=== PATIENT | female | born 1960 | race Caucasian/White ===

== ENCOUNTER 2016-10-20 01:04 | Emergency (ER) | payer SELFPAY ==
[~2016-10-20] VITALS: Ht 170.2 cm; Wt 74.8 kg
[~2016-10-20 01:04] MED LIST: TYLENOL EXTRA500 MG ORAL
[2016-10-20] MEDS ORDERED: HYDROmorphone 1mg/ml Carpuject IM ONE (01:15)
[2016-10-20] MEDS ORDERED: HYDROCODON-ACE1 EA15 ORAL (02:38)
--- NOTE | 2016-10-20 02:39 | Emergency Room Report ---
History of Present Illness General Chief Complaint: Pain Source: Patient Present Illness HPI This is a 56-year-old female who had a right hip replacement secondary to degenerative changes from a previous fall. She presents with right hip pain. Pain is worse the last couple days. She has chronic pain in her knee and hip before. Had MRI in May. Worse in the last 2 days. Worse with bearing weight. No trauma. Pain is 9/10. No nausea no vomiting. No radiation. Allergies: Uncoded Allergies: SULFA (Allergy, Unknown, 10/20/16) Patient History Past Medical History: see triage record, old chart reviewed Past Surgical History: other Pertinent Family History: none Social History: Denies: smoking Last Menstrual Period: n/a Now: No Immunizations: other Reviewed Nursing Documentation: PMH: Agreed, PSxH: Agreed Nursing Documentation-PMH Past Medical History: No History, Except For Hx Cardiac Problems: Yes - right total hip replacement 2010 Review of Systems Eye: Denies: blurred vision, eye pain ENT: Denies: ear pain, nose congestion, throat swelling Respiratory: Denies: cough, shortness of breath Cardiovascular: Denies: chest pain, palpitations Gastrointestinal: Denies: abdominal pain, diarrhea, nausea, vomiting Musculoskeletal: Reports: joint pain, Denies: back pain Skin: Denies: rash Neurological: Denies: headache, numbness Endocrine: Denies: increased thirst, increased urine Hematologic/Lymphatic: Denies: easy bruising All Other Systems: negative except mentioned in HPI Physical Exam Vital Signs Date Time Temp Pulse Resp B/P Pulse Ox O2 Delivery O2 Flow Rate FiO2 10/20/16 00:57 105 20 128/81 100 Room Air vitals normal. Sp02 EP Interpretation: reviewed, normal General Appearance: well appearing, no apparent distress, alert Head: normocephalic, atraumatic Eyes: bilateral eye EOMI, bilateral eye PERRL ENT: hearing grossly normal, normal pharynx Neck: full range of motion, supple, no meningismus Respiratory: chest non-tender, lungs clear, normal breath sounds Cardiovascular #1: regular rate, rhythm, no murmur Gastrointestinal: normal bowel sounds, non tender, no mass, no organomegaly, no bruit, non-distended Musculoskeletal: back normal, normal range of motion, tender - right hip tenderness with axial load pain over knee Neurologic: alert, oriented x3 Psychiatric: mood/affect normal Skin: warm/dry Medical Decision Making Diagnostic Impression: Primary Impression: Right hip pain ER Course Patient presents with atraumatic right hip pain. No evidence of degenerative changes. Heart were intact. This may be secondary to her knee. She scheduled see orthopedics beginning of November. Will treat with pain medication. No evidence of septic joint. No dislocation Other X-Ray Diagnostic Results Other X-Ray Diagnostic Results : X-Ray Ordered: xr hip Date: Oct 20, 2016 Time: 02:37 EP Interpretation: Yes Findings: no fractures, no dislocation, no soft tissue swelling, other - Hardware intact. Number of Views: 3 Last Vital Signs Date Time Temp Pulse Resp B/P Pulse Ox O2 Delivery O2 Flow Rate FiO2 10/20/16 00:57 105 20 128/81 100 Room Air Status: improved Disposition: HOME, SELF-CARE Condition: Stable Scripts Hydrocodone/Acetaminophen 5-325* (HYDROCODONE/ACETAMINOPHEN 5-325*) 1 Each Tablet 1 TAB ORAL Q6H Y for For Pain, #20 TAB 0 Refills Prov: JW DASILVA M.D. 10/20/16 Additional Instructions: Follow up with your doctor in 7 days. Return if worse. JW DASILVA M.D. Oct 20, 2016 02:39
[2016-10-20 02:46] VITALS: BP 101/76
[2016-10-20 02:47] VITALS: BP 101/76
--- NOTE | 2016-10-20 12:19 | Diagnostic Imaging Report ---
Indications: hip pain Findings: Two views of the right hip were obtained. Right hip prosthesis is noted. There is no fracture identified on the 2 views obtained. No dislocation identified. Impression: No fracture or dislocation identified
== END 2016-10-20 02:47 | disposition home or self-care (01) ==
LOC: EDBD 01:04 → EMR 01:17
DX: M25.551 Pain in right hip (principal); Z96.641 Presence of right artificial hip joint; Z88.2 Allergy status to sulfonamides
CPT/HCPCS: 73502; 96372; 99283; J1170

== ENCOUNTER 2017-03-02 23:46 | Emergency (ER) | payer BC ==
[~2017-03-02] VITALS: Ht 170.2 cm; Wt 82.6 kg
[~2017-03-02 23:46] MED LIST changes: +HYDROCODON-ACE1 EA15 ORAL
[2017-03-03] MEDS ORDERED: HYDROmorphone 1mg/ml Carpuject IVP ONE ×2 (00:30→01:45)
[2017-03-03 01:04] LABS: APPEARANCE,URINE CLEAR; KETONES,URINE NEGATIVE (NEGATIVE); LEUKOCYTE ESTERASE ,URINE NEGATIVE (NEGATIVE); NITRITE,URINE NEGATIVE (NEGATIVE); PH,URINE 6.5 (4.5-8.0); PROTEIN,URINE NEGATIVE (NEGATIVE); UROBILINOGEN,URINE NORMAL MG/DL (0.0-1.0)
[2017-03-03 01:10] LABS: BASOPHILS % (AUTO) 1.9 % (0.0-2.0); EOSINOPHILS % (AUTO) 4.6 % (0.0-3.0); LYMPHOCYTES % (AUTO) 42.1 % (20.0-45.0); MEAN CORPUSCULAR HEMOGLOBIN 29.6 PG (27.0-31.0); MEAN CORPUSCULAR HGB CONC 32.1 G/DL (32.0-36.0); MEAN CORPUSCULAR VOLUME 92 FL (80-99); MEAN PLATELET VOLUME 7.5 FL (6.5-10.1); MONOCYTES % (AUTO) 6.5 % (1.0-10.0); NEUTROPHILS % (AUTO) 44.9 % (45.0-75.0); PLATELET COUNT 272 K/UL (150-450); RED BLOOD COUNT 4.76 M/UL (4.20-5.40); RED CELL DISTRIBUTION WIDTH 12.2 % (11.6-14.8); WHITE BLOOD COUNT 7.5 K/UL (4.8-10.8)
[2017-03-03 01:26] LABS: ALANINE AMINOTRANSFERASE 18 U/L (3-33); ALBUMIN/GLOBULIN RATIO 1.3 (1.0-2.7); ANION GAP 13 (5-15); ASPARTATE AMINO TRANSFERASE 22 U/L (5-40); CALCIUM 9.5 mg/dL (8.6-10.2); CARBON DIOXIDE 29 mEQ/L (20-30); CHLORIDE 105 mEQ/L (98-107); CREATININE 0.6 mg/dL (0.5-0.9); GLOMERULAR FILTRATION RATE > 60 mL/min (>60); HEMOLYSIS 9; LIPASE 79 U/L (< 60); SODIUM 147 mEQ/L (135-145); TOTAL PROTEIN 7.9 g/dL (6.6-8.7)
[2017-03-03] MEDS ORDERED: Oxycodone/Acetaminophen 5-325 ORAL ONE ×2 (03:30→03:32)
[2017-03-03] MEDS ORDERED: Norco 5mg/325mg tab ORAL ONE (03:30)
[2017-03-03] MEDS ORDERED: PERCOCET 10-321 EACH ORAL (03:37)
--- NOTE | 2017-03-03 03:37 | Emergency Room Report ---
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 She had to have revision. She is currently taking pain medication. She ran out this morning. She presents with chief complaint abdominal pain with vomiting and diarrhea. Denies any fever or chills. Vomiting is nonbloody nonbilious. Diarrhea is watery. She also complaining of increasing hip pain. No other complaint. Able to walk with a walker. Pain is 10 out of 10. Allergies: Coded Allergies: SULFA (SULFONAMIDE ANTIBIOTICS) (Verified Allergy, Unknown, 03/03/17) Uncoded Allergies: SULFA (Allergy, Unknown, 10/20/16) Patient History Past Medical History: see triage record, old chart reviewed Past Surgical History: other Pertinent Family History: none Social History: Denies: smoking Now: No Immunizations: other Reviewed Nursing Documentation: PMH: Agreed, PSxH: Agreed Nursing Documentation-PMH Hx Cardiac Problems: Yes - right total hip replacement 2010 Review of Systems Eye: Denies: blurred vision, eye pain ENT: Denies: ear pain, nose congestion, throat swelling Respiratory: Denies: cough, shortness of breath Cardiovascular: Denies: chest pain, palpitations Gastrointestinal: Reports: abdominal pain, diarrhea, nausea, vomiting Musculoskeletal: Denies: back pain, joint pain Skin: Denies: rash Neurological: Denies: headache, numbness Endocrine: Denies: increased thirst, increased urine Hematologic/Lymphatic: Denies: easy bruising All Other Systems: negative except mentioned in HPI Physical Exam Vital Signs Date Time Temp Pulse Resp B/P Pulse Ox O2 Delivery O2 Flow Rate FiO2 03/03/17 00:04 97.5 88 16 117/90 99 Room Air vitals normal Sp02 EP Interpretation: reviewed, normal General Appearance: well appearing, no apparent distress, alert Head: normocephalic, atraumatic Eyes: bilateral eye EOMI, bilateral eye PERRL ENT: hearing grossly normal, normal pharynx Neck: full range of motion, supple, no meningismus Respiratory: chest non-tender, lungs clear, normal breath sounds Cardiovascular #1: regular rate, rhythm, no murmur Gastrointestinal: normal bowel sounds, no mass, no organomegaly, no bruit, non- distended, tenderness - Mild, diffuse Musculoskeletal: back normal, gait/station normal, normal range of motion Psychiatric: mood/affect normal Skin: warm/dry Medical Decision Making Diagnostic Impression: Primary Impression: Abdominal pain Qualified Codes: R10.84 - Generalized abdominal pain Additional Impression: Vomiting and diarrhea ER Course Patient with abdominal pain and vomiting and diarrhea. Most likely viral in nature. Could also be withdrawal. No evidence of acute abdomen. CT scan negative. No evidence of infection in her hip. We'll discharge home. Lab Results Impression labs unremarkable CT/MRI/US Diagnostic Results CT/MRI/US Diagnostic Results : Imaging Test Ordered: CT abdomen and pelvis Impression read by radiologist. No acute process. Last Vital Signs Date Time Temp Pulse Resp B/P Pulse Ox O2 Delivery O2 Flow Rate FiO2 03/03/17 02:34 97.6 03/03/17 00:04 88 16 117/90 99 Room Air Status: improved Disposition: HOME, SELF-CARE Condition: Stable Scripts Oxycodone Hcl/Acetaminophen 10-325 Mg Tablet (PERCOCET 10-325 MG TABLET*) 1 Each Tablet 1 TAB ORAL Q6H Y for For Pain, #30 TAB 0 Refills Prov: JW DASILVA M.D. 03/03/17 Referrals: NON PHYSICIAN (PCP) Patient Instructions: Nausea and Vomiting, Adult Additional Instructions: Keep your appointment with Dr. Isidro on . Return for increasing pain, fever, chills, or any concern. JW DASILVA M.D. March 03, 2017 03:37
[2017-03-03 03:49] VITALS: BP 128/73
[2017-03-03 03:50] VITALS: BP 117/90
--- NOTE | 2017-03-03 10:07 | Diagnostic Imaging Report ---
Indication: Abdominal pain Technique: Continuous helical transaxial imaging of the abdomen and pelvis was obtained from the lung bases to the pubic symphysis. No intravenous contrast was administered. Coronal 2-D reformats were also obtained. Total Dose length Product (DLP): [address] Dose Index Volume (CTDIvol): 19 mGy Comparison: none Findings: There is basilar atelectasis. Liver is slightly hypodense. There is no nephrolithiasis demonstrated. No hydronephrosis definitely seen. The urinary bladder and portions of the pelvis are obscured by a right total hip prosthesis. Trace constipation within the aorta demonstrated. Gallbladder is grossly unremarkable. No free fluid or free air identified. Appendix is not seen. There are no secondary signs of appendicitis. Suggestion of left adnexal cyst measuring about 2.5 cm. The uterus is probably present and atrophic. Impression: Fatty liver 2.5 cm left ovarian cyst suspected. Obscured pelvis due to right hip hardware No nephrolithiasis identified. Basilar atelectasis [facility] has communicated the preliminary results to the Emergency Department. Their findings are largely concordant with this report. The CT scanner at [facility] is accredited by the [employer] and the scans are performed using dose optimization techniques as appropriate to a performed exam including Automatic Exposure control.
== END 2017-03-03 03:51 | disposition home or self-care (01) ==
LOC: EMR 03-03 00:15
DX: R10.84 Generalized abdominal pain (principal); R11.10 Vomiting, unspecified; R19.7 Diarrhea, unspecified; Z86.718 Personal history of other venous thrombosis and embolism; Z96.641 Presence of right artificial hip joint; Z88.2 Allergy status to sulfonamides
CPT/HCPCS: 36415; 74176; 80053; 81003; 83690; 85025; 96374; 96375; 99284; J1170; J2405

== ENCOUNTER 2017-04-06 23:52 | Emergency (ER) | payer BC ==
[~2017-04-06] VITALS: Ht 170.2 cm; Wt 82.6 kg
[~2017-04-06 23:52] MED LIST changes: +PERCOCET 10-321 EACH ORAL
[2017-04-07] MEDS ORDERED: HYDROmorphone 1mg/ml Carpuject IVP ONE (00:45)
[2017-04-07 01:00] VITALS: BP 104/73
--- NOTE | 2017-04-07 01:09 | Emergency Room Report ---
History of Present Illness General Chief Complaint: Chest Pain Source: Patient Present Illness HPI Is a 57-year-old female with history of chronic pain and previous hip revision. She's taking oxycodone at home. She present with chief complaint of chest pain and arm numbness. She was walking up the steps and fell. No chest trauma. She said she fell her right hip area. She was brushing her teeth and felt sharp pain across her chest. She said both arms of feeling numb. Denies any fever chills denies any head injury. Also complaining of hip pain able to walk in here without a problem. Allergies: Coded Allergies: SULFA (SULFONAMIDE ANTIBIOTICS) (Verified Allergy, Unknown, 04/07/17) Uncoded Allergies: SULFA (Allergy, Unknown, 10/20/16) Patient History Past Medical History: see triage record, old chart reviewed Past Surgical History: other Pertinent Family History: none Social History: Denies: smoking Last Menstrual Period: n/a Now: No Immunizations: other Reviewed Nursing Documentation: PMH: Agreed, PSxH: Agreed Nursing Documentation-PMH Hx Cardiac Problems: Yes - right total hip replacement 2010, dvt, chronic back pain Hx Hypertension: Yes Review of Systems Eye: Denies: blurred vision, eye pain ENT: Denies: ear pain, nose congestion, throat swelling Respiratory: Denies: cough, shortness of breath Cardiovascular: Reports: chest pain, Denies: palpitations Gastrointestinal: Denies: abdominal pain, diarrhea, nausea, vomiting Musculoskeletal: Denies: back pain, joint pain Skin: Denies: rash Neurological: Denies: headache, numbness Endocrine: Denies: increased thirst, increased urine Hematologic/Lymphatic: Denies: easy bruising All Other Systems: negative except mentioned in HPI Physical Exam Vital Signs Date Time Temp Pulse Resp B/P Pulse Ox O2 Delivery O2 Flow Rate FiO2 04/07/17 00:04 98.1 77 16 144/97 98 Room Air vitals normal Sp02 EP Interpretation: reviewed, normal General Appearance: well appearing, no apparent distress, alert Head: normocephalic, atraumatic Eyes: bilateral eye EOMI, bilateral eye PERRL ENT: hearing grossly normal, normal pharynx Neck: full range of motion, supple, no meningismus Respiratory: chest non-tender, lungs clear, normal breath sounds Cardiovascular #1: regular rate, rhythm, no murmur Gastrointestinal: normal bowel sounds, non tender, no mass, no organomegaly, no bruit, non-distended Musculoskeletal: back normal, gait/station normal, normal range of motion Psychiatric: mood/affect normal Skin: warm/dry Medical Decision Making Diagnostic Impression: Primary Impression: Chest pain Qualified Codes: R07.9 - Chest pain, unspecified Additional Impressions: Opioid dependence Qualified Codes: F11.20 - Opioid dependence, uncomplicated Hip pain, chronic Qualified Codes: M25.551 - Pain in right hip; G89.29 - Other chronic pain ER Course Patient presents with chief complaint of pain. From a cardiac standpoint see no evidence of ACS, PE, dissection. Pain is reproducible. I suspect a lot of narcotic dependency and pain seeking component. We'll discharge home. Lab Results Impression labs normal EKG Diagnostic Results EKG Time: 01:09 Rate: normal Rhythm: NSR ST Segments: no acute changes Rhythm Strip Diag. Results Rhythm Strip Time: 01:09 EP Interpretation: yes Rate: 70 Rhythm: NSR, no PVC's, no ectopy Chest X-Ray Diagnostic Results Chest X-Ray Ordered: Yes # of Views/Limited/Complete: 1 View Interpretation: no consolidation, no effusion, no pneumothorax, no acute cardiopulmonary disease Indication: Chest Pain Impression: No acute disease Date Electronically Signed: Apr 07, 2017 Time Electronically Signed: 01:09 Interpreting ER Physician: Josiah James MD Last Vital Signs Date Time Temp Pulse Resp B/P Pulse Ox O2 Delivery O2 Flow Rate FiO2 04/07/17 01:00 72 14 104/73 100 Room Air 04/07/17 00:04 98.1 Status: improved Disposition: HOME, SELF-CARE Condition: Stable Referrals: NON PHYSICIAN (PCP) Patient Instructions: Nonspecific Chest Pain Additional Instructions: Followup with your DrLuz in 2-3 days. Take your pain medication. Return if worse. JOSIAH JAMES M.D. Apr 07, 2017 01:09
[2017-04-07 01:46] LABS: EOSINOPHILS % (AUTO) 3.5 % (0.0-3.0); LYMPHOCYTES % (AUTO) 32.7 % (20.0-45.0); MEAN CORPUSCULAR HEMOGLOBIN 31.3 PG (27.0-31.0); MEAN CORPUSCULAR HGB CONC 35.3 G/DL (32.0-36.0); MEAN CORPUSCULAR VOLUME 89 FL (80-99); MEAN PLATELET VOLUME 7.7 FL (6.5-10.1); MONOCYTES % (AUTO) 6.5 % (1.0-10.0); NEUTROPHILS % (AUTO) 55.3 % (45.0-75.0); PLATELET COUNT 239 K/UL (150-450); RED BLOOD COUNT 5.02 M/UL (4.20-5.40); RED CELL DISTRIBUTION WIDTH 12.4 % (11.6-14.8); WHITE BLOOD COUNT 6.6 K/UL (4.8-10.8)
[2017-04-07 02:00] VITALS: BP 101/74
[2017-04-07 02:00] LABS: ANION GAP 16 (5-15); CALCIUM 9.9 mg/dL (8.6-10.2); CARBON DIOXIDE 26 mEQ/L (20-30); CHLORIDE 99 mEQ/L (98-107); CREATININE 0.7 mg/dL (0.5-0.9); GLOMERULAR FILTRATION RATE > 60 mL/min (>60); HEMOLYSIS 152; POTASSIUM 5.1 mEQ/L (3.4-4.9); SODIUM 141 mEQ/L (135-145)
[2017-04-07 02:06] LABS: TROPONIN I < 0.30 ng/mL (<=0.30)
[2017-04-07 02:30] VITALS: BP 101/74
--- NOTE | 2017-04-07 12:34 | Diagnostic Imaging Report ---
Indication: Chest pain Technique: One view of the chest Comparison: none Findings: Lungs and pleural spaces are clear. Heart size is normal. Impression: No acute process
--- NOTE | 2017-04-07 16:36 | Cardiology Report ---
APPROVED REPORT EKG Measurement Heart [id number] Normal sinus rhythm Nonspecific T wave abnormality Abnormal ECG
== END 2017-04-07 02:30 | disposition home or self-care (01) ==
LOC: EMR 04-07 00:35
DX: R07.9 Chest pain, unspecified (principal); F11.20 Opioid dependence, uncomplicated; M25.551 Pain in right hip; Z96.641 Presence of right artificial hip joint; Z88.2 Allergy status to sulfonamides; I10 Essential (primary) hypertension; G89.29 Other chronic pain; M54.9 Dorsalgia, unspecified
CPT/HCPCS: 36415; 71010; 80048; 84484; 85025; 93005; 96374; 99284; J1170

== ENCOUNTER 2017-07-07 01:26 | Emergency (ER) | payer BC ==
[~2017-07-07] VITALS: Ht 170.2 cm; Wt 78.0 kg
[2017-07-07 01:44] VITALS: BP 104/85
--- NOTE | 2017-07-07 02:01 | Emergency Room Report ---
History of Present Illness General Chief Complaint: Headache Source: Patient Present Illness HPI 57-year-old female no significant past medical history presenting with multiple medical complaints, notably headache and abdominal pain For abdominal pain, Patient states pain started today, generalized all over her abdomen, non radiating, aching in nature, intermittent. No relieving or exacerbating factors. Denies fever chills Denies nvd. Complains of constipation for 4 days, denying passage of gas. Denies any abdominal surgeries Patient also complaining of left-sided headache, as well as left eye throbbing pain, mild blurry vision, for the last 3 days, constant with intermittent exacerbations, patient has been taking Excedrin with minimal relief. Denies nausea or vomiting. Patient does not have a history of headaches. Pain is gradual in onset Allergies: Coded Allergies: SULFA (SULFONAMIDE ANTIBIOTICS) (Verified Allergy, Unknown, 04/07/17) Uncoded Allergies: SULFA (Allergy, Unknown, 10/20/16) Patient History Past Medical History: see triage record Past Surgical History: none Pertinent Family History: none Reviewed Nursing Documentation: PMH: Agreed, PSxH: Agreed Nursing Documentation-PMH Hx Cardiac Problems: Yes - right total hip replacement 2010, dvt, chronic back pain Hx Hypertension: Yes Review of Systems All Other Systems: negative except mentioned in HPI Physical Exam Vital Signs Date Time Temp Pulse Resp B/P (MAP) Pulse Ox O2 Delivery O2 Flow Rate FiO2 07/07/17 01:31 97.5 81 18 124/89 96 Room Air Sp02 EP Interpretation: reviewed, normal General Appearance: normal inspection, alert, GCS 15, non-toxic, mild distress Head: normocephalic, atraumatic Eyes: bilateral eye normal inspection, bilateral eye PERRL, bilateral eye EOMI , bilateral eye visual acuity - B/L 20/50, bilateral eye other - L eye IOP 20, R eye IOP 21 ENT: normal ENT inspection, normal pharynx, normal voice, TMs + canals normal, moist mucus membranes Neck: normal inspection, full range of motion, supple, no meningismus, no bony tend Respiratory: normal inspection, lungs clear, normal breath sounds, no respiratory distress, no retraction, no wheezing, speaking full sentences, chest symmetrical Cardiovascular #1: normal inspection, regular rate, rhythm, no edema, normal capillary refill Cardiovascular #2: 2+ radial (R), 2+ radial (L) Gastrointestinal: normal bowel sounds, soft, non-distended, no guarding, other - Nontender abdomen all quadrants, no grimace to deep palpation Musculoskeletal: normal inspection, back normal, normal range of motion, non- tender Neurologic: normal inspection, alert, oriented x3, responsive, research associate molecular biology III-XII nml as tested, motor strength/tone normal, sensory intact, normal gait, speech normal Psychiatric: normal inspection, judgement/insight normal, memory normal Skin: normal inspection, normal color, no rash, warm/dry, well hydrated, normal turgor Medical Decision Making Diagnostic Impression: Primary Impression: Headache Additional Impression: Constipation ER Course 57-year-old female presenting with abdominal pain for 3 days as well as headache for 3 days DDX: VINCENT: primary VINCENT / dehydration / migraine / intracranial bleed / glaucoma Other serious diagnoses on differential such as intracranial bleed/sah, meningitis/encephalitis, tumor, however patients H&P is more consistent with benign etiology at this time. There are no neurological signs/symptoms/findings on physical exam and patient appears nontoxic. Abd pain: Gastritis, gastroenteritis, cholecystitis, appendicitis, diverticulitis, SBO, UTI/pyelo At this time abdomen is soft nontender, not likely to have acute intra- abdominal surgical pathology, will hold CT for now. Plan: Pain control Basic labs CT head, Abd XR: at this time abdomen is soft nt will hold CT abdo pelvis for now ER course: Patient has remained stable during ED stay. s/p enema with BM in ED Repeat abdominal exam is nontender.no n/v VINCENT improved with medications, CT head negative pt nad at bedside, marcialttortega, repeat abd exam benign, will dc home Disposition: Patient is to be discharged to home. Patient is instructed to follow up with their primary care doctor within 5 days. Strict return precautions discussed with patient such as fever, chills, worsening/severe abdominal pain, nausea, vomiting, black or bloody stools, which may indicate severe illness. Patient verbalizes understanding and agrees with plan. Please note that this Emergency Department Report was dictated using [employer] specialist technology software, occasionally this can lead to erroneous entry secondary to interpretation by the dictation equipment Laboratory Tests Test 07/07/17 02:03 07/07/17 02:14 Urine Color Pale yellow Urine Appearance Clear Urine pH 5 (4.5-8.0) Urine Specific [place] 1.010 (1.005-1.035) Urine Protein Negative (NEGATIVE) Urine Glucose (UA) Negative (NEGATIVE) Urine Ketones Negative (NEGATIVE) Urine Occult Blood 1+ (NEGATIVE) H Urine Nitrite Negative (NEGATIVE) Urine Bilirubin Negative (NEGATIVE) Urine Urobilinogen Normal MG/DL (0.0-1.0) Urine Leukocyte Esterase Negative (NEGATIVE) Urine RBC 0-2 /HPF (0 - 2) Urine WBC 0-2 /HPF (0 - 2) Urine Squamous Epithelial Cells Moderate /LPF (NONE/OCC) H Urine Bacteria Occasional /HPF (NONE) White Blood Count 7.6 K/UL (4.8-10.8) Red Blood Count 4.11 M/UL (4.20-5.40) L Hemoglobin 12.8 G/DL (12.0-16.0) Hematocrit 39.1 % (37.0-47.0) Mean Corpuscular Volume 95 FL (80-99) Mean Corpuscular Hemoglobin 31.0 PG (27.0-31.0) Mean Corpuscular Hemoglobin Concent 32.6 G/DL (32.0-36.0) Red Cell Distribution Width 12.8 % (11.6-14.8) Platelet Count 255 K/UL (150-450) Mean Platelet Volume 6.8 FL (6.5-10.1) Neutrophils (%) (Auto) 46.0 % (45.0-75.0) Lymphocytes (%) (Auto) 40.9 % (20.0-45.0) Monocytes (%) (Auto) 7.0 % (1.0-10.0) Eosinophils (%) (Auto) 4.8 % (0.0-3.0) H Basophils (%) (Auto) 1.4 % (0.0-2.0) Sodium Level 142 mEQ/L (135-145) Potassium Level 4.0 mEQ/L (3.4-4.9) Chloride Level 103 mEQ/L (98-107) Carbon Dioxide Level 28 mEQ/L (20-30) Anion Gap 11 (5-15) Blood Urea Nitrogen 16 mg/dL (7-23) Creatinine 0.6 mg/dL (0.5-0.9) Estimate Glomerular Filtration Rate > 60 mL/min (>60) Glucose Level 98 mg/dL (74-106) Calcium Level 9.8 mg/dL (8.6-10.2) Total Bilirubin 0.3 mg/dL (0.0-1.2) Aspartate Amino Transferase (AST) 19 U/L (5-40) Alanine Aminotransferase (ALT) 26 U/L (3-33) Alkaline Phosphatase 65 U/L (35-104) Troponin I < 0.30 ng/mL (<=0.30) Total Protein 7.0 g/dL (6.6-8.7) Albumin 3.9 g/dL (3.5-5.2) Globulin 3.1 g/dL Albumin/Globulin Ratio 1.2 (1.0-2.7) Lipase 27 U/L (< 60) Rhythm Strip Diag. Results EP Interpretation: yes Rhythm: NSR, no PVC's, no ectopy, other Other X-Ray Diagnostic Results Other X-Ray Diagnostic Results : X-Ray ordered: abd XR # of Views/Limited Vs Complete: 1 View Indication: Pain EP Interpretation: Yes Interpretation: nonspecific bowel gas, no sbo Impression: No acute disease Electronically Signed by: Electronically signed by Tyler Pacheco MD CT/MRI/US Diagnostic Results CT/MRI/US Diagnostic Results : Imaging Test Ordered: CT head Impression CT HEAD: No ICH, mass effect or edema. No evidence of acute cortical stroke. Visualized sinuses and mastoid air cells are clear. Electronically signed by Tyler Pacheco MD Last Vital Signs Date Time Temp Pulse Resp B/P (MAP) Pulse Ox O2 Delivery O2 Flow Rate FiO2 07/07/17 01:44 98.3 74 14 104/85 94 Room Air Disposition: HOME, SELF-CARE Condition: Improved Patient Instructions: Abdominal Pain, Adult, [id number], Constipation, Adult , [id number], General Headache Without Cause Tyler Pacheco M.D. Jul 07, 2017 02:01
[2017-07-07] MEDS: Tetracaine 0.5% Opth Soln LEFT EYE ONE ×2 (02:10→02:11)
[2017-07-07] MEDS ORDERED: Acetaminophen 500mg (ES) tab ORAL ONE ×2 (02:43→02:45)
[2017-07-07] MEDS ORDERED: Magnesium Citrate Liq Btl ORAL ONE (02:45)
[2017-07-07] MEDS ORDERED: Fleet's Enema 133ml RECTAL ONE (02:45)
[2017-07-07] MEDS ORDERED: DiphenhydrAMINE 50mg/ml Inj ONE (03:48)
[2017-07-07] MEDS ORDERED: Metoclopramide 10mg/2ml Inj ONE (03:49)
[2017-07-07] MEDS ORDERED: DiphenhydrAMINE 50mg/ml Inj IVP ONE (04:00)
[2017-07-07] MEDS ORDERED: Metoclopramide 10mg/2ml Inj IVP ONE (04:00)
[2017-07-07 04:03] LABS: BASOPHILS % (AUTO) 1.4 % (0.0-2.0); EOSINOPHILS % (AUTO) 4.8 % (0.0-3.0); LYMPHOCYTES % (AUTO) 40.9 % (20.0-45.0); MEAN CORPUSCULAR HGB CONC 32.6 G/DL (32.0-36.0); MEAN CORPUSCULAR VOLUME 95 FL (80-99); MEAN PLATELET VOLUME 6.8 FL (6.5-10.1); PLATELET COUNT 255 K/UL (150-450); RED BLOOD COUNT 4.11 M/UL (4.20-5.40); RED CELL DISTRIBUTION WIDTH 12.8 % (11.6-14.8); WHITE BLOOD COUNT 7.6 K/UL (4.8-10.8)
[2017-07-07 04:08] LABS: ALANINE AMINOTRANSFERASE 26 U/L (3-33); ALBUMIN/GLOBULIN RATIO 1.2 (1.0-2.7); ANION GAP 11 (5-15); ASPARTATE AMINO TRANSFERASE 19 U/L (5-40); CALCIUM 9.8 mg/dL (8.6-10.2); CARBON DIOXIDE 28 mEQ/L (20-30); CHLORIDE 103 mEQ/L (98-107); CREATININE 0.6 mg/dL (0.5-0.9); GLOMERULAR FILTRATION RATE > 60 mL/min (>60); HEMOLYSIS 10; LIPASE 27 U/L (< 60); SODIUM 142 mEQ/L (135-145)
[2017-07-07 04:14] LABS: APPEARANCE,URINE CLEAR; KETONES,URINE NEGATIVE (NEGATIVE); LEUKOCYTE ESTERASE ,URINE NEGATIVE (NEGATIVE); NITRITE,URINE NEGATIVE (NEGATIVE); PH,URINE 5 (4.5-8.0); PROTEIN,URINE NEGATIVE (NEGATIVE); UROBILINOGEN,URINE NORMAL MG/DL (0.0-1.0)
[2017-07-07 04:17] LABS: BACTERIA,URINE OCCASIONAL /HPF; RBC,URINE 0-2 /HPF (0 - 2); SQUAMOUS EPITHELIAL CELL,UR MODERATE /LPF (NONE/OCC); WBC,URINE 0-2 /HPF (0 - 2)
[2017-07-07 05:02] VITALS: BP 110/79
[2017-07-07 05:02] LABS: TROPONIN I < 0.30 ng/mL (<=0.30)
--- NOTE | 2017-07-07 09:41 | Diagnostic Imaging Report ---
Indications: Headache Technique: Spiral acquisitions obtained through the brain. Angled axial and coronal 5 x 5 mm slices were reconstructed. Total dose length product 1390 mGycm. CTDI vol(s) 70 mGy. Dose reduction achieved using automated exposure control Comparison: None Findings: There is mild age-related cortical volume loss. There is minimal enlargement of the ventricles. No acute hemorrhage or edema. No mass effect or midline shift. Normal whitehead-white differentiation. Intact calvarium. Visualized orbits and sinuses are unremarkable. Impression: Age-related changes. Negative for acute intracranial bleed or mass effect This agrees with the preliminary interpretation provided overnight by [facility]. The CT scanner at [facility] is accredited by the [place] and the scans are performed using protocols designed to limit radiation exposure to as low as reasonably achievable to attain images of sufficient resolution adequate for diagnostic evaluation.
--- NOTE | 2017-07-07 10:05 | Diagnostic Imaging Report ---
Indication: Abdominal pain Technique: Supine view of the abdomen Comparison: Balloon Pilot image from abdomen pelvis CT of 03/03/2013 Findings: There is a right hip prosthesis. There is considerable stool throughout the colon, particularly in the ascending colon. Bowel gas pattern is otherwise unremarkable. Unusual masses or calcifications. No significant change Impression: Possible constipation. No acute process otherwise
== END 2017-07-07 04:56 | disposition home or self-care (01) ==
LOC: EMR 01:50
DX: R51 Headache (principal); K59.00 Constipation, unspecified; R10.9 Unspecified abdominal pain; H53.8 Other visual disturbances; Z88.2 Allergy status to sulfonamides; G89.29 Other chronic pain; M54.9 Dorsalgia, unspecified; Z96.641 Presence of right artificial hip joint; I10 Essential (primary) hypertension
CPT/HCPCS: 36415; 70450; 74000; 80053; 81003; 83690; 84484; 85025; 96361; 96374; 96375; 99284; J1200; J2765

== ENCOUNTER 2017-12-17 01:29 | Emergency (ER) | payer BC ==
[2017-12-17] VITALS (9 sets, daily range): BP systolic 86–112; BP diastolic 59–68
[~2017-12-17] VITALS: Ht 170.2 cm; Wt 80.7 kg
[2017-12-17 02:05] LABS: BASOPHILS % (AUTO) 1.5 % (0.0-2.0); EOSINOPHILS % (AUTO) 4.4 % (0.0-3.0); HEMATOCRIT 40.3 % (37.0-47.0); HEMOGLOBIN 13.7 G/DL (12.0-16.0); LYMPHOCYTES % (AUTO) 43.7 % (20.0-45.0); MEAN CORPUSCULAR VOLUME 93 FL (80-99); MONOCYTES % (AUTO) 7.2 % (1.0-10.0); NEUTROPHILS % (AUTO) 43.2 % (45.0-75.0); PLATELET COUNT 265 K/UL (150-450); RED BLOOD COUNT 4.32 M/UL (4.20-5.40); RED CELL DISTRIBUTION WIDTH 12.1 % (11.6-14.8); WHITE BLOOD COUNT 8.9 K/UL (4.8-10.8)
[2017-12-17 02:08] LABS: APPEARANCE,URINE CLEAR; BILIRUBIN, URINE NEGATIVE (NEGATIVE); COLOR,URINE PALE YELLOW; GLUCOSE, URINE (UA) NEGATIVE (NEGATIVE); KETONES,URINE NEGATIVE (NEGATIVE); LEUKOCYTE ESTERASE ,URINE NEGATIVE (NEGATIVE); NITRITE,URINE NEGATIVE (NEGATIVE); PH,URINE 5 (4.5-8.0); PROTEIN,URINE NEGATIVE (NEGATIVE); UROBILINOGEN,URINE NORMAL MG/DL (0.0-1.0)
[2017-12-17 02:15] LABS: ANION GAP 10 mmol/L (5-15); BLOOD UREA NITROGEN 9 mg/dL (7-18); CALCIUM 8.7 MG/DL (8.5-10.1); CARBON DIOXIDE 28 MMOL/L (21-32); CHLORIDE 102 MMOL/L (98-107); CREATININE 0.7 MG/DL (0.55-1.30); POTASSIUM 3.5 MMOL/L (3.5-5.1); SODIUM 140 MMOL/L (136-145)
[2017-12-17 02:22] LABS: ALANINE AMINOTRANSFERASE 35 U/L (12-78); ALBUMIN 3.6 G/DL (3.4-5.0); ALKALINE PHOSPHATASE 78 U/L (46-116); ASPARTATE AMINO TRANSFERASE 26 U/L (15-37); BILIRUBIN,TOTAL 0.2 MG/DL (0.2-1.0)
--- NOTE | 2017-12-17 02:59 | Emergency Room Report ---
History of Present Illness General Chief Complaint: Overdose Source: Patient Present Illness HPI 57-year-old female presents with overdose. Patient extremely lethargic, poor historian, but stated that she took many pills of her Klonopin and Xanax. Patient has bottles with her and they are completely empty both bottles had 60 pills each. Patient states that she took all pills at the same time. Denies any other drug use. When asked if she feels suicidal, patient does not answer. Allergies: Coded Allergies: SULFA (SULFONAMIDE ANTIBIOTICS) (Verified Allergy, Unknown, 04/07/17) Uncoded Allergies: SULFA (Allergy, Unknown, 10/20/16) Patient History Past Medical History: see triage record Past Surgical History: none Pertinent Family History: none Reviewed Nursing Documentation: PMH: Agreed, PSxH: Agreed Nursing Documentation-PMH Hx Cardiac Problems: Yes - right total hip replacement 2010, dvt, chronic back pain Hx Hypertension: Yes Review of Systems All Other Systems: negative except mentioned in HPI Physical Exam Vital Signs Date Time Temp Pulse Resp B/P (MAP) Pulse Ox O2 Delivery O2 Flow Rate FiO2 12/17/17 01:37 97.8 68 14 103/61 96 Room Air 97.9 Sp02 EP Interpretation: reviewed, normal General Appearance: non-toxic, other - lethargic but arousable and aox2, answering questions appropriately Head: normocephalic, atraumatic Eyes: bilateral eye normal inspection, bilateral eye PERRL, bilateral eye EOMI ENT: normal ENT inspection Neck: normal inspection, full range of motion, supple Respiratory: normal inspection, lungs clear, normal breath sounds, no respiratory distress, no retraction, no wheezing, speaking full sentences, chest symmetrical Cardiovascular #1: normal inspection, regular rate, rhythm, normal capillary refill Cardiovascular #2: 2+ radial (R), 2+ radial (L) Gastrointestinal: normal inspection, non tender, soft, non-distended, no guarding Musculoskeletal: normal inspection, back normal, normal range of motion, non- tender Neurologic: responsive, motor strength/tone normal, sensory intact, other - slowed speech, but moving all ext spont, following commands Psychiatric: other - +possible si Skin: normal inspection, normal color, no rash, warm/dry, well hydrated, normal turgor Medical Decision Making Diagnostic Impression: Primary Impression: Drug overdose Additional Impression: Alcohol intoxication ER Course 57-year-old female with overdose DDX: Overdose of benzodiazepines, rule out other toxic overdose Plan: Obtain labs, ua, toxicology labs, EKG chest x-ray ER course: Patient has been monitored during ED stay, borderline low blood pressure, however Map > 65. Given IV fluids Signed out patient to Dr Dangelo 57 yo F alcohol intox, reportedly overdose on benzo but utox neg -reassess when awake for SI, likely DC home if not Please note that this Emergency Department Report was dictated using Circaambulatory service representative technology software, occasionally this can lead to erroneous entry secondary to interpretation by the dictation equipment. EKG Diagnostic Results EP Interpretation: Yes Rate: normal Rhythm: NSR ST Segments: T wave inversions V3 ASA given to patient: No Rhythm Strip EP Interpretation: Yes Rate: 75 Rhythm: NSR, no PVCs, no ectopy Chest X-ray CXR: Ordered: Yes 1 view Indication: Overdose EP interpretation: Yes Interpretation: No consolidation, no effusion, no PTX, no acute cardiopulmonary disease Impression: No acute disease Electronically signed by Tyler Pacheco MD Laboratory Tests Test 12/17/17 01:47 White Blood Count 8.9 K/UL (4.8-10.8) Red Blood Count 4.32 M/UL (4.20-5.40) Hemoglobin 13.7 G/DL (12.0-16.0) Hematocrit 40.3 % (37.0-47.0) Mean Corpuscular Volume 93 FL (80-99) Mean Corpuscular Hemoglobin 31.8 PG (27.0-31.0) H Mean Corpuscular Hemoglobin Concent 34.1 G/DL (32.0-36.0) Red Cell Distribution Width 12.1 % (11.6-14.8) Platelet Count 265 K/UL (150-450) Mean Platelet Volume 6.4 FL (6.5-10.1) L Neutrophils (%) (Auto) 43.2 % (45.0-75.0) L Lymphocytes (%) (Auto) 43.7 % (20.0-45.0) Monocytes (%) (Auto) 7.2 % (1.0-10.0) Eosinophils (%) (Auto) 4.4 % (0.0-3.0) H Basophils (%) (Auto) 1.5 % (0.0-2.0) Urine Color Pale yellow Urine Appearance Clear Urine pH 5 (4.5-8.0) Urine Specific [place] 1.010 (1.005-1.035) Urine Protein Negative (NEGATIVE) Urine Glucose (UA) Negative (NEGATIVE) Urine Ketones Negative (NEGATIVE) Urine Occult Blood Negative (NEGATIVE) Urine Nitrite Negative (NEGATIVE) Urine Bilirubin Negative (NEGATIVE) Urine Urobilinogen Normal MG/DL (0.0-1.0) Urine Leukocyte Esterase Negative (NEGATIVE) Sodium Level 140 MMOL/L (136-145) Potassium Level 3.5 MMOL/L (3.5-5.1) Chloride Level 102 MMOL/L (98-107) Carbon Dioxide Level 28 MMOL/L (21-32) Anion Gap 10 mmol/L (5-15) Blood Urea Nitrogen 9 mg/dL (7-18) Creatinine 0.7 MG/DL (0.55-1.30) Estimate Glomerular Filtration Rate > 60 mL/min (>60) Glucose Level 90 MG/DL (74-106) Calcium Level 8.7 MG/DL (8.5-10.1) Total Bilirubin 0.2 MG/DL (0.2-1.0) Aspartate Amino Transferase (AST) 26 U/L (15-37) Alanine Aminotransferase (ALT) 35 U/L (12-78) Alkaline Phosphatase 78 U/L (46-116) Troponin I 0.000 ng/mL (0.000-0.056) Total Protein 7.3 G/DL (6.4-8.2) Albumin 3.6 G/DL (3.4-5.0) Globulin 3.7 g/dL Albumin/Globulin Ratio 1.0 (1.0-2.7) Salicylates Level 7.1 ug/mL (2.8-20) Urine Opiates Screen Negative (NEGATIVE) Acetaminophen Level < 2 MCG/ML (10-30) L Urine Barbiturates Screen Negative (NEGATIVE) Phencyclidine (PCP) Screen Negative (NEGATIVE) Urine Amphetamines Screen Negative (NEGATIVE) Urine Benzodiazepines Screen Negative (NEGATIVE) Urine Cocaine Screen Negative (NEGATIVE) Urine Marijuana (THC) Screen Negative (NEGATIVE) Serum Alcohol 116 mg/dL Last Vital Signs Date Time Temp Pulse Resp B/P (MAP) Pulse Ox O2 Delivery O2 Flow Rate FiO2 12/17/17 01:37 97.8 68 14 103/61 96 Room Air 97.9 Referrals: NON PHYSICIAN (PCP) Tyler Pacheco M.D. Dec 17, 2017 02:59
--- NOTE | 2017-12-17 10:46 | Diagnostic Imaging Report ---
Indication: Dyspnea Comparison: 04/07/2017 A single view chest radiograph was obtained. Findings: Cardiomediastinal appearance is within normal limits for age. Lung volumes are low. Pulmonary vascularity is appropriate. The diaphragmatic contour is smooth and costophrenic angles are sharp. No pleural effusions are identified. The bones are unremarkable. Impression: No acute findings
--- NOTE | 2017-12-17 12:22 | Emergency Room Report ---
Physical Exam Vital Signs Date Time Temp Pulse Resp B/P (MAP) Pulse Ox O2 Delivery O2 Flow Rate FiO2 12/17/17 01:37 97.8 68 14 103/61 96 Room Air 97.9 Medical Decision Making Diagnostic Impression: Primary Impression: Drug overdose Additional Impression: Alcohol intoxication ER Course Hospital Course 57-year-old female brought to ED for evaluation. Reportedly overdose on Klonopin and Xanax. Clinical course Patient initially seen and evaluated by Dr Drew; please see her note for full history and physical Labs-electrolytes normal, aspirin/Tylenol levels normal, EtOH > 100, Utox negative On reassessment patient is clinically sober. Denies any suicidal or homicidal ideation. States she took some Ativan to help or sleep. Spoke to PMD Dr Grier; he believes psychiatric evaluation would be helpful because patient was seen at [facility] approximately 2 weeks ago for similar presentation. Was recommended to see psychiatrist as outpatient but patient never saw a psychiatrist evaluated by Dr Chen. believes patient is not safe for discharge given polysubstance abuse. Please patient should be admitted to psychiatric facility Patient is medically cleared and pending psychiatric evaluation. i. I feel this is a highly complex case requiring extensive working including EKG/Rhythm strip, Xray/CT/US, Blood/urine lab work, repeat exams while in ED, and administration of strong opiates/narcotics for pain control, admission to hospital or close patient follow up. Labs Test 12/17/17 01:47 White Blood Count 8.9 K/UL (4.8-10.8) Red Blood Count 4.32 M/UL (4.20-5.40) Hemoglobin 13.7 G/DL (12.0-16.0) Hematocrit 40.3 % (37.0-47.0) Mean Corpuscular Volume 93 FL (80-99) Mean Corpuscular Hemoglobin 31.8 PG (27.0-31.0) Mean Corpuscular Hemoglobin Concent 34.1 G/DL (32.0-36.0) Red Cell Distribution Width 12.1 % (11.6-14.8) Platelet Count 265 K/UL (150-450) Mean Platelet Volume 6.4 FL (6.5-10.1) Neutrophils (%) (Auto) 43.2 % (45.0-75.0) Lymphocytes (%) (Auto) 43.7 % (20.0-45.0) Monocytes (%) (Auto) 7.2 % (1.0-10.0) Eosinophils (%) (Auto) 4.4 % (0.0-3.0) Basophils (%) (Auto) 1.5 % (0.0-2.0) Urine Color Pale yellow Urine Appearance Clear Urine pH 5 (4.5-8.0) Urine Specific [place] 1.010 (1.005-1.035) Urine Protein Negative (NEGATIVE) Urine Glucose (UA) Negative (NEGATIVE) Urine Ketones Negative (NEGATIVE) Urine Occult Blood Negative (NEGATIVE) Urine Nitrite Negative (NEGATIVE) Urine Bilirubin Negative (NEGATIVE) Urine Urobilinogen Normal MG/DL (0.0-1.0) Urine Leukocyte Esterase Negative (NEGATIVE) Sodium Level 140 MMOL/L (136-145) Potassium Level 3.5 MMOL/L (3.5-5.1) Chloride Level 102 MMOL/L (98-107) Carbon Dioxide Level 28 MMOL/L (21-32) Anion Gap 10 mmol/L (5-15) Blood Urea Nitrogen 9 mg/dL (7-18) Creatinine 0.7 MG/DL (0.55-1.30) Estimat Glomerular Filtration Rate > 60 mL/min (>60) Glucose Level 90 MG/DL (74-106) Calcium Level 8.7 MG/DL (8.5-10.1) Total Bilirubin 0.2 MG/DL (0.2-1.0) Aspartate Amino Transf (AST/SGOT) 26 U/L (15-37) Alanine Aminotransferase (ALT/SGPT) 35 U/L (12-78) Alkaline Phosphatase 78 U/L (46-116) Troponin I 0.000 ng/mL (0.000-0.056) Total Protein 7.3 G/DL (6.4-8.2) Albumin 3.6 G/DL (3.4-5.0) Globulin 3.7 g/dL Albumin/Globulin Ratio 1.0 (1.0-2.7) Salicylates Level 7.1 ug/mL (2.8-20) Urine Opiates Screen Negative (NEGATIVE) Acetaminophen Level < 2 MCG/ML (10-30) Urine Barbiturates Screen Negative (NEGATIVE) Phencyclidine (PCP) Screen Negative (NEGATIVE) Urine Amphetamines Screen Negative (NEGATIVE) Urine Benzodiazepines Screen Negative (NEGATIVE) Urine Cocaine Screen Negative (NEGATIVE) Urine Marijuana (THC) Screen Negative (NEGATIVE) Serum Alcohol 116 mg/dL Last Vital Signs Date Time Temp Pulse Resp B/P (MAP) Pulse Ox O2 Delivery O2 Flow Rate FiO2 12/17/17 09:00 68 15 97/62 97 Room Air 12/17/17 04:30 97.9 97.9 Status: improved Disposition: XFER TO PSYCH HOSP/UNIT Condition: Serious Referrals: NON PHYSICIAN (PCP) BLAYNE FAUSTIN M.D. Dec 17, 2017 12:22
--- NOTE | 2017-12-17 21:45 | Consultation ---
DATE OF CONSULTATION: 12/17/2017 HISTORY OF PRESENT ILLNESS: The patient was seen in the ER. This is a 57-year-old female with a history of depression and anxiety, who has been admitted to the hospital intoxicated, apparently she overdosed on some benzodiazepine. During the evaluation, the patient was endorsing depressed mood, anhedonia, worthlessness, and hopelessness. She denied suicidal ideation, however, she stated that she does not feel safe to go home. PAST PSYCHIATRIC HISTORY: She is having history depression and anxiety, has recently been hospitalized in a psychiatric carranza, recently has been at [facility] with similar situation. PAST MEDICAL HISTORY: She has a history of pain. MEDICATIONS: She is on Suboxone, Xanax, Ativan and Lexapro. SUBSTANCE ABUSE HISTORY: She has a history of dependence to pain medication as well as an anxiolytics. The patient also stated that she has been in a program called [facility] and she is recently dropped out. She is seeing a psychiatrist for benzodiazepine dependence and she has not been seeing for weeks. MENTAL STATUS EXAMINATION: The patient is alert and oriented x4. Mood is neutral. Affect is constricted, congruent with mood. Thought process is concrete. Thought content, no suicidal or homicidal ideation. Cognition is intact. Insight and judgment fair. ASSESSMENT: AXIS I Major depressive disorder. Polysubstance dependence. AXIS II Deferred. AXIS III As above. AXIS IV Low. AXIS V Global assessment of functioning is 25. PLAN: 1. We will discharge the patient to psychiatric carranza. 2. Provide the patient with supportive therapy and reality orientation. We will continue to follow and readjust the medications. Liss Chen M.D. DR: SUZY JOB#: [id number] CC:
--- NOTE | 2017-12-19 16:05 | Cardiology Report ---
APPROVED REPORT EKG Measurement Heart [id number] [place] [id number] Normal sinus rhythm Incomplete right bundle branch block Nonspecific T wave abnormality Prolonged QT Abnormal ECG
== END 2017-12-17 15:50 ==
LOC: EDUNIT# 01:29 → EDBD 01:29 → EMR 01:44
DX: T42.4X2A Poisoning by benzodiazepines, intentional self-harm, initial encounter (principal); R53.83 Other fatigue; F10.129 Alcohol abuse with intoxication, unspecified; Z88.2 Allergy status to sulfonamides; I10 Essential (primary) hypertension; Z96.641 Presence of right artificial hip joint
CPT/HCPCS: 36415; 71045; 80053; 80307; 81003; 84484; 85025; 93005; 96361; 96374; 99285; G0480; 80329

== ENCOUNTER 2018-01-01 19:05 | Emergency (ER) | payer SELFPAY ==
[~2018-01-01] VITALS: Ht 162.6 cm; Wt 78.9 kg
[2018-01-01 19:05] VITALS: BP 144/90
[2018-01-01] MEDS ORDERED: Methocarbamol 750mg tab ORAL ONE (19:45)
[2018-01-01] MEDS ORDERED: Ketorolac 60mg Inj IM ONE (19:45)
[2018-01-01] MEDS ORDERED: Dicyclomine HCl 10mg/5ml oral soln ORAL ONE (19:45)
[2018-01-01] MEDS ORDERED: ZOFRAN ODT4 MG ORAL (20:07)
[2018-01-01] MEDS ORDERED: DICYCLOMINE HCL10 MG PO (20:07)
[2018-01-01] MEDS ORDERED: ROBAXIN500 MG PO (20:07)
[2018-01-01 20:15] VITALS: BP 144/90
--- NOTE | 2018-01-01 21:56 | Emergency Room Report ---
History of Present Illness General Chief Complaint: General Complaint Source: EMS Present Illness HPI 57-year-old female presents to the emergency department complaining of 8 out of 10 in severity generalized body-aches. Patient states that she is going through opiate withdraws and she describes nausea, diarrhea, chills and sneezing. Pt. describes pleuritis chest pains, knee pain and hip pains. Denies SOB. Patient states that she is regularly prescribed hydrocodone ever since accident which occurred last month. Patient states that she has history of hip replacement. 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 Patient is requesting refill in the emergency department. Patient states that she has been having. Patient reports that she was at [facility] just prior to arriving here and she left because they were "busy. " Allergies: Coded Allergies: SULFA (SULFONAMIDE ANTIBIOTICS) (Verified Allergy, Unknown, 04/07/17) Uncoded Allergies: SULFA (Allergy, Unknown, 10/20/16) Nursing Documentation-[facility] Past Medical History: No History, Except For Hx Cardiac Problems: Yes - right total hip replacement 2010, dvt, chronic back pain Hx Hypertension: Yes History Of Psychiatric Problem: Yes - depression Review of Systems All Other Systems: negative except mentioned in HPI Physical Exam Vital Signs Date Time Temp Pulse Resp B/P (MAP) Pulse Ox O2 Delivery O2 Flow Rate FiO2 01/01/18 18:56 98.5 90 18 144/90 98 Room Air 98.4 Sp02 EP Interpretation: reviewed, normal General Appearance: no apparent distress, alert, GCS 15, non-toxic Head: normocephalic, atraumatic Eyes: bilateral eye normal inspection, bilateral eye PERRL ENT: hearing grossly normal, normal voice Neck: full range of motion Respiratory: chest non-tender, lungs clear, normal breath sounds, no respiratory distress, no wheezing, speaking full sentences Cardiovascular #1: regular rate, rhythm Gastrointestinal: normal bowel sounds, non tender, soft Musculoskeletal: back normal, gait/station normal, normal range of motion, tender - Generalized TTP, FROM and ambulatory. Neurologic: alert, oriented x3, responsive, motor strength/tone normal, sensory intact, normal gait, speech normal, grossly normal Psychiatric: judgement/insight normal, no suicidal/homicidal ideation, other - hx of depression and anxiety. Skin: normal color, no rash, warm/dry, well hydrated Medical Decision Making PA Attestation Dr. Santos is my supervising Physician whom patient management has been discussed with. Diagnostic Impression: Primary Impression: Opiate dependence Qualified Codes: F11.20 - Opioid dependence, uncomplicated Additional Impression: Encounter for medication refill ER Course 57-year-old female presents to the emergency department complaining of 8 out of 10 in severity generalized body-aches. Patient states that she is going through opiate withdraws and she describes nausea, diarrhea, chills and sneezing. Pt. describes pleuritis chest pains, knee pain and hip pains. Denies SOB. Patient states that she is regularly prescribed hydrocodone ever since accident which occurred last month. Patient states that she has history of hip replacement. 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 Patient is requesting refill in the emergency department. Patient states that she has been having. Patient reports that she was at [facility] just prior to arriving here and she left because they were "busy. " Patient was here a week and a half ago for alleged overdose and reportedly took a full container of opiates and benzos. Review of this patient's cures report shows recent filter quantity of 60 hydrocodone on the . She has been regularly prescribed opiates even including Suboxone for over 6 months which is not consistent with patient's history of only having them since November. Ddx considered but are not limited to: drug seeking, OD, Vital signs: are WNL, pt. is afebrile H&PE are most consistent with Nonemergent request for medication refill of chronic pain medication. Patient clinically does not show evidence of opiate withdrawal at this time other than sneezing. Vital signs are within normal limits and do not suggest withdrawal agitation. She is nontoxic in appearance ORDERS: -EKG 80 NSR with nonspecific T wave abnormality. ED INTERVENTIONS: Patient is given Zofran for nausea, Bentyl for diarrhea and Toradol for pain. Patient's listed primary care provider was contacted via telephone and he stated that he has received multiple phone calls from different ERs over the course of the last few days regarding this patient he states that he has not seen her in quite some time and she did not follow-up with him like she was supposed to. -I do not identify an emergent condition at this time. With current presentation , pt. is stable for close outpatient follow up and conservative treatment. D/ w pt. to return promptly to ED with worsening or new symptoms.- Pt. (and or responsible constitution party) verbalizes' understanding and agreement with proposed treatment plan.proposed treatment plan. -Discussed with this patient that general policy of the ER is that we do not refill prescriptions for chronic pain medications as these refills are reserved for primary care provider or pain management provider who is currently managing patient. Also discussed with this patient that given recent ED visit for attempted overdose I ultimately would not feel comfortable discharging this patient with a prescription for a controlled substance that is not emergently needed. This patient was also given written information about safe pain medication prescribing an emergency departments. Ultimately patient was in discontent and became verbally and physically aggressive which required security to escort patient out upon discharge. DISCHARGE: At this time pt. is stable for d/c to home. Will provide printed patient care instructions, and any necessary prescriptions. Care plan and follow up instructions have been discussed with the patient prior to discharge. EKG Diagnostic Results EP Interpretation: Dr. Santos Rate: normal - 80 Rhythm: NSR ST Segments: no acute changes Other Impression nonspecific T wave abnormality. ASA given to the pt in ED: No PA Scribe Text This Interpretation was scribed by RYAN Navas. Last Vital Signs Date Time Temp Pulse Resp B/P (MAP) Pulse Ox O2 Delivery O2 Flow Rate FiO2 01/01/18 20:15 98.5 86 18 144/90 98 Room Air 209.3 Disposition: HOME, SELF-CARE Condition: Stable Scripts Methocarbamol* (ROBAXIN*) 500 Mg Tablet 500 MG PO TID, #6 TAB 0 Refills Prov: Anaya Navas P.A. 01/01/18 Dicyclomine Hcl* (DICYCLOMINE HCL*) 10 Mg Capsule 10 MG PO TID, #6 CAP Prov: Anaya Navas P.A. 01/01/18 Ondansetron Odt* (ZOFRAN ODT*) 4 Mg Tab.rapdis 4 MG ORAL Q6H Y for Nausea & Vomiting, #10 TAB Prov: Anaya Navas P.A. 3/17/18 Referrals: NOT CHOSEN IPA/MD,REFERRING (PCP) Patient Instructions: Opioid Use Disorder Additional Instructions: Take medications as directed. Follow up with a Primary Care Provider in 3-5 days, even if your symptoms have resolved. Return sooner to ED if new symptoms occur, or current symptoms become worse. The Emergency Department only prescribes CONTROLLED SUBSTANCES for acute injuries. There is no evidence of an emergent condition requiring the requested medication refill, and no evidence of an acute injury. Controlled substances are very addictive and require close monitoring when being prescribed controlled substances an outpatient treatment The emergency department is not a resource to be used as outpatient followup, and therefore reserve the regular prescribing, or refill or regularly prescribed controlled substances for your PCP or your chronic pain management provider for your safety -- We urge you to follow up with your PRIMARY CARE DOCTOR who can fully evaluate you , Monitor your condition and safely prescribe any necessary medications that are controlled. - Please note that this Emergency Department Report was dictated using [employer] paint technology software, occasionally this can lead to erroneous entry secondary to interpretation by the dictation equipment. Anaya Navas Jan 01, 2018 21:56
--- NOTE | 2018-01-04 18:43 | Cardiology Report ---
APPROVED REPORT EKG Measurement Heart [id number] Normal sinus rhythm Incomplete right bundle branch block Nonspecific T wave abnormality Prolonged QT Abnormal ECG
== END 2018-01-01 21:00 | disposition home or self-care (01) ==
LOC: EDBD 19:05 → EMR 21:00
DX: F11.20 Opioid dependence, uncomplicated (principal); Z76.0 Encounter for issue of repeat prescription; I10 Essential (primary) hypertension; F32.9 Major depressive disorder, single episode, unspecified; Z96.641 Presence of right artificial hip joint; Z86.718 Personal history of other venous thrombosis and embolism; G89.29 Other chronic pain; Z88.2 Allergy status to sulfonamides
CPT/HCPCS: 93005; 96372; 99284

== ENCOUNTER 2018-01-01 20:59 | Emergency (ER) | payer SELFPAY ==
[~2018-01-01] VITALS: Ht 170.2 cm; Wt 77.1 kg
[~2018-01-01 20:59] MED LIST changes: +DICYCLOMINE HCL10 MG PO; +ROBAXIN500 MG PO; +ZOFRAN ODT4 MG ORAL
[2018-01-01 21:10] VITALS: BP 129/97
[2018-01-01 21:50] VITALS: BP 129/97
--- NOTE | 2018-01-01 21:55 | Emergency Room Report ---
History of Present Illness General Chief Complaint: Head Injury Source: Patient, Medical Record Present Illness HPI Is a 57-year-old female with a history opioid addiction. She was just discharged from this hospital. She came in complaining generalized pain. According to her previous ER doctor patient was seen and discharged. Dr. Grier was contacted and said that patient goes to different hospital for pain medication. Patient came back as she says she fell while she was waiting for the taxi. She claimed that she fell hit her head on the sidewalk. She complaining of headache. Asking for pain medication. Pain is 10 out of 10. No loss of consciousness. Allergies: Coded Allergies: SULFA (SULFONAMIDE ANTIBIOTICS) (Verified Allergy, Unknown, 04/07/17) Uncoded Allergies: SULFA (Allergy, Unknown, 10/20/16) Patient History Past Medical History: see triage record, old chart reviewed Past Surgical History: other Pertinent Family History: none Social History: Denies: smoking Last Menstrual Period: none Now: No Immunizations: other Reviewed Nursing Documentation: PMH: Agreed, PSxH: Agreed Nursing Documentation-PMH Hx Cardiac Problems: Yes - right total hip replacement 2010, dvt, chronic back pain Hx Hypertension: Yes Review of Systems Eye: Denies: eye pain, blurred vision ENT: Denies: ear pain, nose congestion, throat swelling Respiratory: Denies: cough, shortness of breath Cardiovascular: Denies: chest pain, palpitations Gastrointestinal: Denies: abdominal pain, diarrhea, nausea, vomiting Musculoskeletal: Denies: back pain, joint pain Skin: Denies: rash Neurological: Denies: headache, numbness Endocrine: Denies: increased thirst, increased urine Hematologic/Lymphatic: Denies: easy bruising All Other Systems: negative except mentioned in HPI Physical Exam Vital Signs Date Time Temp Pulse Resp B/P (MAP) Pulse Ox O2 Delivery O2 Flow Rate FiO2 01/01/18 21:05 98.2 88 18 129/97 98 Room Air 98.2 vitals normal Sp02 EP Interpretation: reviewed, normal General Appearance: well appearing, no apparent distress, alert Head: normocephalic, atraumatic - I see no evidence of any Injury area no hematoma. No Abrasion Eyes: bilateral eye PERRL, bilateral eye EOMI ENT: hearing grossly normal, normal pharynx Neck: full range of motion, supple, no meningismus Respiratory: chest non-tender, lungs clear, normal breath sounds Cardiovascular #1: regular rate, rhythm, no murmur Gastrointestinal: normal bowel sounds, non tender, no mass, no organomegaly, no bruit, non-distended Musculoskeletal: back normal, gait/station normal, normal range of motion Psychiatric: mood/affect normal Skin: warm/dry Medical Decision Making Diagnostic Impression: Primary Impression: Acute head injury Qualified Codes: S09.90XA - Unspecified injury of head, initial encounter Additional Impression: Opiate dependence Qualified Codes: F11.20 - Opioid dependence, uncomplicated ER Course Patient with alleged head injury. I suspect that she was malingering. Again I told patient she would not be getting ankle.. At which point she got very combative and loud. She claimed she couldn't walk but able to walk out of here without any difficulty. We'll discharge home. She left without paperwork's. CT/MRI/US Diagnostic Results CT/MRI/US Diagnostic Results : Imaging Test Ordered: CT head Impression negative per radiologist Last Vital Signs Date Time Temp Pulse Resp B/P (MAP) Pulse Ox O2 Delivery O2 Flow Rate FiO2 01/01/18 21:18 98.2 01/01/18 21:10 88 18 129/97 98 Room Air Status: improved Disposition: HOME, SELF-CARE Condition: Stable Patient Instructions: HEAD INJURY, No Wake-Up (Adult) JW DASILVA M.D. Jan 01, 2018 21:55
--- NOTE | 2018-01-02 13:45 | Diagnostic Imaging Report ---
Indication: Pain status post fall Technique: Continuous helical CT scanning of the head was performed utilizing automated exposure control without intravenous contrast material. Axial and coronal reconstructions were obtained. Comparison: 07/07/2017 CT dose: Total DLP 1340.9 mGycm; CTDI vol 70.38 mGy Findings: There is no acute intracranial hemorrhage, mass effect or cortical edema. The ventricles, cisterns and sulci are mildly prominent consistent with mild atrophy. Size and configuration of the ventricular system is able compared to the prior exam. Visualized mastoid air cells and paranasal sinuses are unremarkable. No focal lesions of the bony calvarium or soft tissues of the scalp are seen. IMPRESSION: No evidence of acute intracranial hemorrhage, mass effect or cortical edema. MRI may be obtained for more sensitive evaluation as clinically indicated. Additional findings as above. This corresponds with the statrad preliminary report. The CT scanner at [facility] is accredited by the [employer] and the scans are performed using protocols designed to limit radiation exposure to as low as reasonably achievable to attain images of sufficient resolution adequate for diagnostic evaluation.
== END 2018-01-01 22:15 | disposition home or self-care (01) ==
LOC: EMR 22:13
DX: S09.90XA Unspecified injury of head, initial encounter (principal); F11.20 Opioid dependence, uncomplicated; I10 Essential (primary) hypertension; G89.29 Other chronic pain; Z86.718 Personal history of other venous thrombosis and embolism; Z88.2 Allergy status to sulfonamides; W18.30XA Fall on same level, unspecified, initial encounter; Y92.9 Unspecified place or not applicable
CPT/HCPCS: 70450; 99283

== ENCOUNTER 2018-01-01 23:15 | Emergency (ER) | payer SELFPAY ==
[~2018-01-01] VITALS: Ht 170.2 cm; Wt 77.1 kg
[2018-01-01 23:30] VITALS: BP 125/93
[2018-01-01] MEDS ORDERED: Haloperidol Decanoate 50mg Inj IM ONE (23:45)
[2018-01-01] MEDS ORDERED: DiphenhydrAMINE 50mg/ml Inj IM ONE (23:45)
[2018-01-02] VITALS (15 sets, daily range): BP systolic 115–147; BP diastolic 63–93
[2018-01-02] MEDS ORDERED: Haloperidol 5mg/ml Inj IM ONE ×2 (00:30→17:15)
--- NOTE | 2018-01-02 00:37 | Emergency Room Report ---
History of Present Illness General Chief Complaint: Suicidal Source: Patient, Medical Record Present Illness HPI This is a 57-year-old female whose been here twice already. She has a history of opioid dependency intake OxyContin. Initially she came in with generalize pain and wants pain medication. She had to be escorted out and she came back the second time with complaint of head injury. She was very demanding yelling for pain medication. Again she was escorted out. At that time she said that if she doesn't get pain medications she is suicidal. In the waiting room she called 911. When the officer came she said that we are not giving her pain medication and therefore she is suicidal. She said that she wants to kill himself by wrapping a rope around her neck. Because of that police liaison officer placed on a 5150. Patient denies any drug abuse. Denies any alcohol use. She has been here previously for overdose on her medication and also alcohol intoxication. Allergies: Coded Allergies: SULFA (SULFONAMIDE ANTIBIOTICS) (Verified Allergy, Unknown, 04/07/17) Uncoded Allergies: SULFA (Allergy, Unknown, 10/20/16) Patient History Past Medical History: see triage record, old chart reviewed Past Surgical History: other Family History: none Social History: tobacco use Last Menstrual Period: none Now: No Immunizations: other Reviewed Nursing Documentation: PMH: Agreed, PSxH: Agreed Nursing Documentation-PMH Hx Cardiac Problems: Yes - right total hip replacement 2010, dvt, chronic back pain Hx Hypertension: Yes Review of Systems ENT: Denies: sore throat Cardiovascular: Denies: chest pain, palpitations Gastrointestinal/Abdominal: Denies: nausea, vomiting, diarrhea Musculoskeletal: Denies: back problems Skin: Denies: rash Neurological: Denies: VINCENT, seizures All Other Systems: negative except mentioned in HPI Physical Exam Vital Signs Date Time Temp Pulse Resp B/P (MAP) Pulse Ox O2 Delivery O2 Flow Rate FiO2 01/01/18 23:17 97.9 87 18 125/93 98 Room Air 97.9 vitals normal Sp02 EP Interpretation: reviewed, normal General Appearance: alert/responsive, no apparent distress, non-toxic Head: normocephalic, atraumatic Eyes: PERRL, EOMI ENT: oropharynx normal Neck: supple/symm/no masses Respiratory: effort normal, no rhonchi, no wheezing Cardiovascular: no murmur, gallop, rub Gastrointestinal: non-tender, no mass, non-distended, no rebound/guarding, normal bowel sounds Musculoskeletal: gait & station normal Neurologic: oriented x3, sensory intact, motor strength/tone normal Psychiatric: other - agitation Skin: no rash, normal palpation Medical Decision Making Diagnostic Impression: Primary Impression: Suicidal ideation Additional Impression: Opiate dependence Qualified Codes: F11.20 - Opioid dependence, uncomplicated ER Course This patient presents with vague suicidal thoughts. Suspect more malingering because she wants pain medication. Because she is on a 5150 will hold her for psychiatric evaluation. Labs and urine sent. Patient was not cooperative and was yelling and cursing at myself and the nursing staff. She threatened to leave. She had to be restrained. She was saying that security staff was all black and left alone with " a white girl." She said that they were going to beat her up. She threatened to danyell me and the hospital. From my standpoint patient is medically clear for psychiatric evaluation. Patient calmed down after medication. Restraint removed by 2:27 AM. Labs unremarkable. Patient is medically clear for psychiatric evaluation. Last Vital Signs Date Time Temp Pulse Resp B/P (MAP) Pulse Ox O2 Delivery O2 Flow Rate FiO2 01/01/18 23:17 97.9 87 18 125/93 98 Room Air 97.9 Status: improved Disposition: XFER TO PSYCH HOSP/UNIT Condition: Stable JW DASILVA M.D. Jan 02, 2018 00:37
[2018-01-02 03:04] LABS: BASOPHILS % (AUTO) 1.4 % (0.0-2.0); HEMATOCRIT 41.5 % (37.0-47.0); HEMOGLOBIN 14.1 G/DL (12.0-16.0); LYMPHOCYTES % (AUTO) 24.3 % (20.0-45.0); MEAN CORPUSCULAR VOLUME 93 FL (80-99); MONOCYTES % (AUTO) 6.7 % (1.0-10.0); NEUTROPHILS % (AUTO) 65.7 % (45.0-75.0); PLATELET COUNT 222 K/UL (150-450); RED BLOOD COUNT 4.46 M/UL (4.20-5.40); RED CELL DISTRIBUTION WIDTH 11.7 % (11.6-14.8); WHITE BLOOD COUNT 8.4 K/UL (4.8-10.8)
[2018-01-02 03:12] LABS: ANION GAP 9 mmol/L (5-15); BLOOD UREA NITROGEN 14 mg/dL (7-18); CALCIUM 9.3 MG/DL (8.5-10.1); CARBON DIOXIDE 27 MMOL/L (21-32); CHLORIDE 109 MMOL/L (98-107); CREATININE 0.7 MG/DL (0.55-1.30); POTASSIUM 3.9 MMOL/L (3.5-5.1); SODIUM 145 MMOL/L (136-145)
[2018-01-02 03:16] LABS: ALANINE AMINOTRANSFERASE 32 U/L (12-78); ALBUMIN 3.8 G/DL (3.4-5.0); ALBUMIN/GLOBULIN RATIO 1.1 (1.0-2.7); ALKALINE PHOSPHATASE 69 U/L (46-116); ASPARTATE AMINO TRANSFERASE 30 U/L (15-37); BILIRUBIN,TOTAL 0.4 MG/DL (0.2-1.0)
[2018-01-02 03:28] LABS: APPEARANCE,URINE SLIGHTLY CLOUDY; BILIRUBIN, URINE NEGATIVE (NEGATIVE); GLUCOSE, URINE (UA) NEGATIVE (NEGATIVE); KETONES,URINE NEGATIVE (NEGATIVE); LEUKOCYTE ESTERASE ,URINE 1+ (NEGATIVE); NITRITE,URINE NEGATIVE (NEGATIVE); PH,URINE 5 (4.5-8.0); PROTEIN,URINE 1+ (NEGATIVE); UROBILINOGEN,URINE NORMAL MG/DL (0.0-1.0)
[2018-01-02 03:33] LABS: COLOR,URINE YELLOW
[2018-01-02] MEDS ORDERED: LORazepam 1mg tab ORAL ONE (15:00)
[2018-01-02] MEDS ORDERED: DiphenhydrAMINE 50mg/ml Inj IM ONE (17:15)
[2018-01-02] MEDS ORDERED: Zolpidem 5mg tab ORAL ONE (21:45)
[2018-01-03 01:30] VITALS: BP 120/74
[2018-01-03 04:30] VITALS: BP 122/72
[2018-01-03 06:40] VITALS: BP 127/88
[2018-01-03] MEDS ORDERED: LORazepam 1mg tab ORAL ONE (10:45)
[2018-01-03 11:21] VITALS: BP 124/85
[2018-01-03 12:20] VITALS: BP 124/85
== END 2018-01-03 12:20 ==
LOC: EMR 23:55
DX: R45.851 Suicidal ideations (principal); F11.20 Opioid dependence, uncomplicated; I10 Essential (primary) hypertension; G89.29 Other chronic pain; Z86.718 Personal history of other venous thrombosis and embolism; Z96.641 Presence of right artificial hip joint; Z78.1 Physical restraint status; Z88.2 Allergy status to sulfonamides
CPT/HCPCS: 36415; 80053; 80307; 81003; 85025; 96372; 99285; G0480; J1200; J1630; 80329